=== PATIENT | female | born 1955 | race African-American/Black ===

== ENCOUNTER 2017-02-02 08:46 | Emergency (ER) | payer OTHER ==
[~2017-02-02] VITALS: Ht 167.6 cm; Wt 110.0 kg
[~2017-02-02 08:46] MED LIST: ENAL20TA81 PO; HYDR50TA5 PO; LORT5TAB PO; TOBR.3%O OS; VALT1TAB26 PO
[2017-02-02 08:47] VITALS: BP 193/97; PULSE 68; RESP 18; TEMP 97.9; O2SAT 97
--- NOTE | 2017-02-02 09:16 | PD ---
HPI Chief Complaint: Injury Time Seen by Provider: 09:15 Travel History International Travel<30 days: No Contact w/Intl Traveler<30days: No Traveled to known affect area: No History of Present Illness HPI 61-year-old female with history of carpal tunnel syndrome to the left wrist presents emergency Department with complaint of left wrist pain since yesterday. Denies injury. She said she was doing housework and doing dishes yesterday which may have exacerbated her pain. Denies paresthesias, loss of sensation to the affected extremity. Reports decreased strength to her left hand. Denies fever, vomiting. Has not taken any medications to alleviate her symptoms. Has a left wrist splint in place for support. Has history of hypertension and took her blood pressure medications today. No known allergies. Has no medical complaints. No other modifying factors or associated signs and symptoms. PFSH Past Medical History Blood Disorders: No Cancer: No Cardiovascular Problems: Yes (HTN) Chemotherapy: No Diminished Hearing: No Endocrine: No Genitourinary: No Hypertension: Yes Immune Disorder: No Musculoskeletal: No Neurologic: No Psychiatric: No Reproductive: No Immunizations Current: Yes Migraines: Yes Radiation Therapy: No Sleep Apnea: Yes Tetanus Vaccination: < 5 Years Menopausal: Yes Past Surgical History Section: Yes Gynecologic Surgery: Yes (CSECTION) Tonsillectomy: Yes Other Surgery: Yes (GASTRIC BYPASS; 2007) Social History Alcohol Use: Yes (wine) Tobacco Use: No Substance Use: No Allergies-Medications (Allergen,Severity, Reaction): Coded Allergies: No Known Allergies (Verified , 02/02/17) Reported Meds & Prescriptions Reported Meds & Active Scripts Active Medrol Dosepak (Methylprednisolone) 4 Mg Dspk 4 Mg PO DIRECTED Per Pharmacist direction Naproxen 500 Mg Tab 500 Mg PO BID PRN Review of Systems Except as stated in HPI: all other systems reviewed are Neg Physical Exam Narrative GENERAL: Well-nourished, well-developed female patient, in no acute distress; tearful SKIN: Warm and dry. HEAD: Atraumatic. Normocephalic. EYES: Pupils equal and round. No scleral icterus. No injection or drainage. ENT: Mucosa pink and moist. Airway patent. NECK: Trachea midline. CARDIOVASCULAR: Regular rate. RESPIRATORY: No accessory muscle use. GASTROINTESTINAL: Obese. MUSCULOSKELETAL: Left wrist with tenderness on palpation; without erythema, edema, ecchymosis; full range of motion; decreased equine dentist strength. Left hand with full range of motion at all finger joints. Left upper extremity is supple and non-tense with 2+ radial pulse and sensory intact. No obvious deformities. No clubbing. No cyanosis. NEUROLOGICAL: Awake and alert. Oriented 3. No obvious cranial nerve deficits. Motor grossly within normal limits. Normal speech. PSYCHIATRIC: Appropriate mood and affect; insight and judgment normal. Data Data Last Documented VS Vital Signs Date Time Temp Pulse Resp B/P Pulse Ox O2 Delivery O2 Flow Rate FiO2 02/02/17 08:47 97.9 68 18 193/97 97 Room Air Orders Ketorolac Inj (Toradol Inj) (02/02/17 09:30) [facility] Medical Decision Making Medical Screen Exam Complete: Yes Emergency Medical Condition: Yes Medical Record Reviewed: Yes Differential Diagnosis Wrist pain, wrist injury, carpal tunnel syndrome Narrative Course 61-year-old female with left wrist pain secondary to history of carpal tunnel syndrome. Left wrist is without erythema, edema, ecchymosis. She has a wrist splint for support. Patient's blood pressure is elevated in the ER; she states she did take her blood pressure medications this morning. Toradol administered in the ER. Naproxen and Medrol Dosepak prescribed for home. Instructed patient to follow up with primary care provider. Patient verbalizes understanding and agreement with treatment plan. Patient is medically cleared and stable for discharge. Discussed reasons to return to the emergency department. Patient agrees with treatment plan. The patients vital signs are stable and the patient is stable for outpatient follow-up and treatment. Patient discharged home, stable and in no acute distress. Diagnosis Primary Impression: Left wrist pain Referrals: Primary Care Physician Patient Instructions: Carpal Tunnel Syndrome (ED), General Instructions Additional Instructions: Wrist splint for support; can use at night while sleeping Avoid sleeping on your hands to help ease pain and numbness in your wrist and hand Rotate your wrist and stretch your palms and fingers Take a pain reliever, such as Advil, Motrin, ibuprofen, Aleve as needed and as directed Follow-up with primary care provider Return to the emergency department immediately with worsening of symptoms Med/Other Pt SpecificInfo: Prescription(s) given Scripts Methylprednisolone Dosepak (Medrol Dosepak)4 Mg Dspk4 Mg PO DIRECTED #1 DSPK Ref 0 Per Pharmacist direction Prov:Brandee Morton 02/02/17 Naproxen 500 Mg [id number] Mg PO BID PRN (PAIN SCALE 1 TO 10) #20 TAB Ref 0 Prov:Brandee Morton 02/02/17 Disposition: 01 DISCHARGE HOME Condition: Stable Brandee Morton Feb 02, 2017 09:15
[2017-02-02] MEDS ORDERED: NAPR500T PO (09:18)
[2017-02-02] MEDS ORDERED: MEDR4PAK PO (09:18)
[2017-02-02] MEDS ORDERED: KETOROLAC TROMETHAMINE 60 MG/2 ML (IM) VIAL IM ONE (09:30)
[2017-02-02] MEDS ORDERED: LISI40TA PO (09:33)
[2017-02-02] MEDS ORDERED: AMLO5TAB2 PO (09:33)
[2017-02-02] MEDS ORDERED: HYDR25TA5 PO (09:33)
== END 2017-02-02 09:33 | disposition home or self-care (01) ==
LOC: NEPD 08:46
DX: M25.532 Pain in left wrist (principal); I10 Essential (primary) hypertension
CPT/HCPCS: 96372; 99284; J1885

== ENCOUNTER 2018-02-28 03:00 | Observation (INO) ==
[2018-02-28] MEDS ORDERED: Sodium Chlor 0.9% Inj 500 ML IV.SIG ONE (03:04)
[2018-02-28 03:14] VITALS: RESP 16
[2018-02-28 04:00] LABS: Alanine Aminotransferase 18 U/L (10-53); Albumin 3.8 g/dL (3.4-5.0); Anion Gap 11 meq/L (5-15); Aspartate Aminotransferase 14 U/L (15-37); Blood Urea Nitrogen 15 mg/dL (7-18); Carbon Dioxide 22.7 meq/L (21.0-32.0); Chloride 111 meq/L (98-107); Glomerular Filtration Rate Greater Than 89 mL/min (>89); Glucose,Random 88 mg/dL (74-106); Lipase 155 U/L (73-393); Magnesium 2.2 mg/dL (1.5-2.5); Potassium 3.4 meq/L (3.5-5.1); Sodium 145 meq/L (136-145)
--- NOTE | 2018-02-28 04:01 | XR ---
EXAM DATE: 02/28/2018 3:33 AM EDT AGE/SEX: 62 years / Female INDICATIONS: Chest pain. CLINICAL DATA: This is the patient's initial encounter. Patient reports that signs and symptoms have been present for 1 day and indicates a pain score of 3/10. MEDICAL/SURGICAL HISTORY: None. None. COMPARISON: No prior exams available for comparison. FINDINGS: A single AP view of the chest demonstrates the lungs to be symmetrically aerated without evidence of mass, infiltrate or effusion. The cardiomediastinal contours are unremarkable. Osseous structures a re intact. CONCLUSION: No acute cardiopulmonary disease. Electronically signed by: Iftikhar Jeffries MD 02/28/2018 4:00 AM EDT
[2018-02-28 04:03] LABS: Alkaline Phosphatase 146 U/L (45-117); Creatine Kinase 148 U/L (26-192)
[2018-02-28 04:04] LABS: Baso % (Auto) 0.5 % (0.0-2.0); Eos # (Auto) 0.1 th/mm3 (0.0-0.4); Eos % (Auto) 1.3 % (0.0-4.0); Hematocrit 46.1 % (35.0-46.0); Hemoglobin 15.7 gm/dL (11.6-15.3); Lymph % (Auto) 41.3 % (9.0-44.0); Mean Corpuscular HGB Conc 34.2 % (32.0-36.0); Mean Corpuscular Hemoglobin 31.2 pg (27.0-34.0); Mean Corpuscular Volume 91.3 fL (80.0-100.0); Mean Platelet Volume 8.1 fL (7.0-11.0); Mono # (Auto) 0.5 th/mm3 (0.0-0.9); Mono % (Auto) 7.4 % (0.0-8.0); Neut # (Auto) 3.6 th/mm3 (1.8-7.7); Neut % (Auto) 49.5 % (16.0-70.0); Platelet Count 281 th/mm3 (150-450); Red Blood Count 5.05 mil/mm3 (4.00-5.30); Red Cell Distribution Width 13.5 % (11.6-17.2); White Blood Count 7.3 th/mm3 (4.0-11.0)
[2018-02-28 04:09] LABS: Activated Partial Thrombo Time 28.2 sec (24.3-30.1); INR 1.1 Ratio; Prothrombin Time 11.5 sec (9.8-11.6)
[2018-02-28 04:16] LABS: Creatine Kinase MB 1.8 ng/mL (0.5-3.6)
[2018-02-28 04:29] LABS: Bacteria,Urine Rare /hpf; Bilirubin,Urine Negative (Negative); Clarity,Urine Clear (Clear); Color,Urine Colorless (Yellw/Straw); Glucose,Urine (UA) Negative (Negative); Leukocyte Esterase,Urine Small (Negative); Nitrite,Urine Negative (Negative); Specific Gravity,Urine 1.003 (1.002-1.035); Squamous Epithelial Cell,Urine 1 /hpf (0-5)
--- NOTE | 2018-02-28 04:46 | ED ---
HPI General Chief complaint: Dizziness Stated complaint: Dizziness Time Seen by Provider: 02/28/18 03:04 Source: patient Limitations: no limitations History of Present Illness HPI narrative: The patient is a 62 year old female who presents to the [facility] emergency department with a history of developing a sensation of throat tightening with shortness of breath and increased heart rate earlier this evening. She reports that it has been associated with belching frequently. She denies having any abdominal pain, nausea, vomiting, or diarrhea associated with this. She denies any prior history of coronary artery disease, cardiac arrhythmia, DVT, or PE. The patient does report having a history of hypertension and is on 3 blood pressure medications. She reports that she has been taking these regularly. She denies having any recent problems with acid reflux or heartburn. On review of systems otherwise, the patient denies having any known recent fevers, cough or congestion, urinary symptoms, or neurologic symptoms. Related Data Home Medications Medication Instructions Recorded Confirmed amlodipine 5 mg PO DAILY 02/28/18 02/28/18 hydrochlorothiazide 25 mg PO DAILY 02/28/18 02/28/18 lisinopril 40 mg PO DAILY 02/28/18 02/28/18 Allergies Allergy/AdvReac Type Severity Reaction Status Date / Time No Known Allergies Allergy Uncoded 02/02/17 09:07 Review of Systems ROS Unobtainable All other systems reviewed negative except as stated in HPI Constitutional Denies fever(s) Eyes Denies change in vision ENT Denies headache(s) and Denies nasal congestion Cardiovascular Denies chest pain (However she does have a tightening sensation in her throat), Reports rapid heart rate and Reports dyspnea Respiratory Denies cough and Reports dyspnea Gastrointestinal Denies abdominal pain and Reports other (Frequent belching) Genitourinary Denies difficulty voiding Musculoskeletal Denies myalgias Integumentary/Breasts Denies rash Neurologic Denies headache(s) Psychiatric Denies depression Endocrine Denies polyuria Hematologic/Lymphatic Denies easy bruising [facility] Medical History Medical History Hypertension (Acute) Surgical History Surgical History Gastric bypass status for obesity (Acute) History of (Acute) History of tonsillectomy (Acute) Social History Social History Substance History: No History of Abuse Second Hand Smoke Exposure: No Smoking Status: Former smoker Tobacco Type: Cigarettes How Often Do You Have a Drink Containing Alcohol: 4 or more times a week Recent Travel in [facility] within the Last 8 Weeks: No Recent Out of Country Travel within the Last 8 Weeks: No Immunization History Tetanus Immunization: Unsure Hx Influenza Vaccine This Season: Yes Exam Const General: cooperative, no acute distress and well developed Nutritional Appearance: well nourished Orientation: alert, awake and oriented x3 HENMT Head: normocephalic and atraumatic Nose: no nasal discharge and no epistaxis Mouth: moist mucous membranes Throat: posterior oropharynx normal Eyes Sclera: normal sclerae Pupils: PERRL Neck Neck: no meningeal signs, trachea midline and no JVD Resp Effort & Inspection: no use of accessory muscles Auscultation: clear to auscultation bilaterally Cardio Rate: tachycardic (Heart rate in the 120s, irregularly irregular) Rhythm: abnormal rhythm (Initially irregularly irregular) Heart Sounds: no gallops, no murmurs and no rubs GI Inspection: non-distended Palpation: soft, no hepatosplenomegaly and nontender Auscultation: normal bowel sounds Back/Spine/Pelvis Back: no CVA tenderness Skin General: dry skin (warm) Neuro General: alert, awake and oriented x3 Cranial Nerves: other (No facial asymmetry) Speech: speech normal Motor: no movement abnormalities noted Extrem General: normal to inspection (No calf tenderness on palpation.), no clubbing, no cyanosis and no edema Psych Mood: congruent mood Affect: normal affect Judgment: judgment good Course Initial Documented Vital Signs Pulse Rate 120 H 02/28/18 03:04 Last Documented Vital Signs Temperature 97.5 F L 02/28/18 03:09 Pulse Rate 126 H 02/28/18 03:09 Respiratory Rate 16 02/28/18 06:40 Blood Pressure 145/92 H 02/28/18 03:09 Pulse Oximetry 98 02/28/18 03:09 Medical Decision Making MDM Narrative Medical decision making narrative: During the course of the patient's emergency department visit, the patient's history, examination, and differential diagnosis were reviewed with the patient. The patient was placed on a personnel monitor with oximetry and frequent blood pressure monitoring. The patient had IV access obtained and blood work sent for analysis. A diagnostic workup was started regarding the patient's sensation of throat tightening, palpitations with elevated heart rate and shortness of breath with belching. An EKG was done. The patient's EKG revealed a sinus rhythm heart rate of 74, QRS duration 104 ms, QTC [address] segment elevation, T waves are inverted in lead III, V1. Rhythm strips were reviewed from [facility] which did reveal atrial fibrillation prior to arrival. The patient was initially provided aspirin 324 mg p.o. 1, sublingual nitroglycerin. The patient's laboratory studies are remarkable for a white count of 7.3, platelets 281, normal differential, hemoglobin is 15.7, PT 11.5, PTT 28.2, CMP chemistry is remarkable for a troponin I of less than 0.02, potassium 3.4, chloride 111, AST 14, alk phos 146, magnesium 2.2, lipase 155. Urinalysis shows small occult blood, small leukocyte esterase, rare bacteria, otherwise unremarkable. The chest x-ray shows no acute abnormality. The patient's results were discussed with the patient, including the plan of care. I explained that further testing and/ or monitoring is indicated based on the patient's history, examination, and/ or laboratory findings. Therefore, I recommended admission for additional evaluation. The patient expressed understanding and was agreeable with this plan. The patient was admitted to the hospital in stable condition and sent to a bed under the care of the [facility]. Differential Diagnosis Differential Diagnosis: Paroxysmal atrial fibrillation, versus SVT, versus acute coronary syndrome Medical Records Medical records reviewed: Yes I reviewed the patient's medical records. Lab Data Lab results reviewed: Yes I reviewed the patient's lab results. Result diagrams: 02/28/18 03:10 02/28/18 03:10 Lab Results 02/28/18 02/28/18 02/28/18 Range/Units 03:10 03:10 03:10 WBC 7.3 (4.0-11.0) th/mm3 RBC 5.05 (4.00-5.30) mil/mm3 Hgb 15.7 H (11.6-15.3) gm/dL Hct 46.1 H (35.0-46.0) % MCV 91.3 (80.0-100.0) fL MCH 31.2 (27.0-34.0) pg MCHC 34.2 (32.0-36.0) % RDW 13.5 (11.6-17.2) % Plt Count 281 (150-450) th/mm3 MPV 8.1 (7.0-11.0) fL Neut % (Auto) 49.5 (16.0-70.0) % Lymph % (Auto) 41.3 (9.0-44.0) % Wise % (Auto) 7.4 (0.0-8.0) % Eos % (Auto) 1.3 (0.0-4.0) % Baso % (Auto) 0.5 (0.0-2.0) % Neut # (Auto) 3.6 (1.8-7.7) th/mm3 Lymph # (Auto) 3.0 (1.0-4.8) th/mm3 Wise # (Auto) 0.5 (0.0-0.9) th/mm3 Eos # (Auto) 0.1 (0.0-0.4) th/mm3 Baso # (Auto) 0.0 (0.0-0.2) th/mm3 WBC Differential . Differential Comment Auto diff final PT 11.5 (9.8-11.6) sec INR 1.1 Ratio APTT 28.2 (24.3-30.1) sec Sodium 145 (136-145) meq/L Potassium 3.4 L (3.5-5.1) meq/L Chloride 111 H (98-107) meq/L Carbon Dioxide 22.7 (21.0-32.0) meq/L Anion Gap 11 (5-15) meq/L BUN 15 (7-18) mg/dL Creatinine 0.70 (0.50-1.00) mg/dL Estimated GFR Greater than 89 (>89) mL/min Random Glucose 88 (74-106) mg/dL Calcium 9.0 (8.5-10.1) mg/dL Magnesium 2.2 (1.5-2.5) mg/dL Total Bilirubin 0.3 (0.2-1.0) mg/dL AST 14 L (15-37) U/L ALT 18 (10-53) U/L Alkaline Phosphatase 146 H (45-117) U/L Total Creatine Kinase 148 (26-192) U/L CK-MB (CK-2) 1.8 (0.5-3.6) ng/mL Troponin I Less than 0.02 L (0.02-0.05) ng/mL B-Natriuretic Peptide (0-100) pg/mL Total Protein 8.0 (6.4-8.2) g/dL Albumin 3.8 (3.4-5.0) g/dL Lipase 155 (73-393) U/L Urine Color (Yellw/Straw) Urine Clarity (Clear) Urine pH (5.0-8.5) Ur Specific Rochelle (1.002-1.035) Urine Protein (Neg-Trace) mg/dL Urine Glucose (UA) (Negative) mg/dL Urine Ketones (Negative) mg/dL Urine Occult Blood (Negative) Urine Nitrate (Negative) Urine Bilirubin (Negative) Urine Urobilinogen (Less than 2) mg/dL Ur Leukocyte Esterase (Negative) Urine RBC (0-3) /hpf Urine WBC (0-5) /hpf Ur Squamous Epith Cells (0-5) /hpf Urine Bacteria (None) /hpf Micro UA Comment Urine Culture Comments 02/28/18 02/28/18 Range/Units 03:10 04:00 WBC (4.0-11.0) th/mm3 RBC (4.00-5.30) mil/mm3 Hgb (11.6-15.3) gm/dL Hct (35.0-46.0) % MCV (80.0-100.0) fL MCH (27.0-34.0) pg MCHC (32.0-36.0) % RDW (11.6-17.2) % Plt Count (150-450) th/mm3 MPV (7.0-11.0) fL Neut % (Auto) (16.0-70.0) % Lymph % (Auto) (9.0-44.0) % Wise % (Auto) (0.0-8.0) % Eos % (Auto) (0.0-4.0) % Baso % (Auto) (0.0-2.0) % Neut # (Auto) (1.8-7.7) th/mm3 Lymph # (Auto) (1.0-4.8) th/mm3 Wise # (Auto) (0.0-0.9) th/mm3 Eos # (Auto) (0.0-0.4) th/mm3 Baso # (Auto) (0.0-0.2) th/mm3 WBC Differential Differential Comment PT (9.8-11.6) sec INR Ratio APTT (24.3-30.1) sec Sodium (136-145) meq/L Potassium (3.5-5.1) meq/L Chloride (98-107) meq/L Carbon Dioxide (21.0-32.0) meq/L Anion Gap (5-15) meq/L BUN (7-18) mg/dL Creatinine (0.50-1.00) mg/dL Estimated GFR (>89) mL/min Random Glucose (74-106) mg/dL Calcium (8.5-10.1) mg/dL Magnesium (1.5-2.5) mg/dL Total Bilirubin (0.2-1.0) mg/dL AST (15-37) U/L ALT (10-53) U/L Alkaline Phosphatase (45-117) U/L Total Creatine Kinase (26-192) U/L CK-MB (CK-2) (0.5-3.6) ng/mL Troponin I (0.02-0.05) ng/mL B-Natriuretic Peptide 66 (0-100) pg/mL Total Protein (6.4-8.2) g/dL Albumin (3.4-5.0) g/dL Lipase (73-393) U/L Urine Color Colorless (Yellw/Straw) Urine Clarity Clear (Clear) Urine pH 7.0 (5.0-8.5) Ur Specific Rochelle 1.003 (1.002-1.035) Urine Protein Negative (Neg-Trace) mg/dL Urine Glucose (UA) Negative (Negative) mg/dL Urine Ketones Negative (Negative) mg/dL Urine Occult Blood Small H (Negative) Urine Nitrate Negative (Negative) Urine Bilirubin Negative (Negative) Urine Urobilinogen Less than 2 (Less than 2) mg/dL Ur Leukocyte Esterase Small H (Negative) Urine RBC Less than 1 (0-3) /hpf Urine WBC 3 (0-5) /hpf Ur Squamous Epith Cells 1 (0-5) /hpf Urine Bacteria Rare H (None) /hpf Micro UA Comment Culture not ind Urine Culture Comments Culture not ind Imaging Data Radiologist's impression: Chest X-Ray 02/28/18 03:04 CONCLUSION: No acute cardiopulmonary disease. ECG Data Attestation: I personally reviewed and interpreted this ECG as follows: Interpretation: The patient had an EKG done on arrival that shows a sinus rhythm heart rate is 74, QRS duration 104 ms, QTC 459 ms. The patient is noted to have T-wave inversions in lead III and V1. No acute ST segment elevation is noted. Discharge Plan Discharge Disposition Patient Disposition: 30 Still Patient Discharge Details Diagnosis: Chest pain, rule out acute myocardial infarction Physicians Team ED Provider: Kisha Márquez Primary Care Provider: Adia Acosta Attending Provider: Kleber Guillaume Status ED Status: Admitted Observation Patient
[2018-02-28] MEDS ORDERED: Acetaminophen 500 MG Tablet PO PRN (06:02)
[2018-02-28 07:42] LABS: Creatine Kinase 128 U/L (26-192)
[2018-02-28 08:01] VITALS: BP 131/79; TEMP 97.8; O2SAT 97
[2018-02-28] MEDS ORDERED: Famotidine 20 MG Tablet PO SCH (09:00)
[2018-02-28 09:48] VITALS: PULSE 57
--- NOTE | 2018-02-28 10:00 | P.HPCA ---
History of Present Illness Primary Care Physician: Adia Acosta Chief Complaint: Dizziness History of Present Illness: 62 year old female with history of hypertension presents to ER for further evaluation of dizziness and right sided neck pain. Onset 0200. Awakened to use the bathroom. On way to bathroom became dizzy and experienced right sided neck "burning." Associated symptoms included "racing, heart beat" and described as "throbbing." No chest discomfort, nausea, vomiting, dyspnea, or diaphoresis. Notified her son who lives with her. Quality back. Duration 2 hours. No precipitating or relieving factors. Denies similar pain in the past. No history of coronary artery disease. RN reports atrial fibrillation was identified on EVAC ekg strips. - Diagnosis (1) Atrial fib/flutter, transient (2) History of hypertension Review of Systems All other systems reviewed negative except as stated [facility] - History History Provided By: Patient - Medical History Medical History: Medical History (Last Reviewed 02/28/18 @ 11:28 by JOSELUIS Santillan) Hypertension - Surgical History Surgical History: Surgical History (Last Reviewed 02/28/18 @ 11:28 by JOSELUIS Santillan) Gastric bypass status for obesity History of History of tonsillectomy - Family History Family History: Family History (Last Updated 02/28/18 @ 11:29 by JOSELUIS Santillan) Brother Myocardial infarct - Tobacco History Second Hand Smoke Exposure: No Tobacco Use In Past 30 Days: No Smoking Status: Former smoker (Social smoker in her 20s, quit age 28.) Tobacco Type: Cigarettes - Alcohol History How Often Do You Have a Drink Containing Alcohol: 4 or more times a week (1 glass of wine nightly) - Substance Use History Substance History: No History of Abuse - Travel History Recent Travel in the [place] Within the Last 8 Weeks: No Recent Travel Out of the Country Within the Last 8 Weeks: No - Immunization History Tetanus Immunization: Unsure Hx Influenza Vaccine This Season: Yes Medications and Allergies Active Medications: Active Medications Acetaminophen (Tylenol) 500 mg PO Q4H PRN PRN Reason: HEADACHE Aspirin (Aspirin) 325 mg PO DAILY MAYUR Famotidine (Pepcid) 20 mg PO BID MAYUR Last Admin: 02/28/18 09:14 Dose: 20 mg Nitroglycerin (Nitrostat Sl) 0.4 mg SL Q5M PRN PRN Reason: CHEST PAIN Sodium Chloride (Ns Flush) 2 ml IV.FLUSH UNSCH PRN PRN Reason: FLUSH AFTER USING IV ACCESS Sodium Chloride (Ns Flush) 2 ml IV.FLUSH BID MAYUR Last Admin: 02/28/18 09:13 Dose: 2 ml Sodium Chloride (Ns Flush) 2 ml IV.FLUSH PRN PRN PRN Reason: FLUSH AFTER USING IV ACCESS Allergies Allergy/AdvReac Type Severity Reaction Status Date / Time No Known Allergies Allergy Uncoded 02/02/17 09:07 Home Medications Medication Instructions Recorded Confirmed Type amlodipine 5 mg PO DAILY 02/28/18 02/28/18 History hydrochlorothiazide 25 mg PO DAILY 02/28/18 02/28/18 History lisinopril 40 mg PO DAILY 02/28/18 02/28/18 History Exam Vital signs: Vital Signs 02/28/18 03:04 02/28/18 03:09 02/28/18 04:00 Temperature 97.5 F L Pulse Rate 120 H 126 H 74 Respiratory Rate 16 16 Blood Pressure 145/92 H 140/76 Pulse Oximetry 98 98 02/28/18 05:00 02/28/18 06:02 02/28/18 06:39 Temperature Pulse Rate 67 68 Respiratory Rate 16 16 16 Blood Pressure 145/82 H 134/79 Pulse Oximetry 99 99 02/28/18 06:40 02/28/18 07:58 02/28/18 09:34 Temperature 97.8 F Pulse Rate 63 57 L Respiratory Rate 16 16 Blood Pressure 131/79 Pulse Oximetry 97 Intake & Output 02/27/18 02/28/18 02/28/18 18:59 06:59 18:59 Weight 113.398 kg Narrative: Very pleasant -Dominican morbidly obese female - Constitutional no acute distress - Routine HEENT Exam Head: Present: normocephalic, atraumatic - Routine Neck Exam Present: supple, full ROM. Absent: JVD, carotid bruit - Routine Chest/Breast/Axilla Exam Chest wall: Absent: tenderness - Routine Respiratory Exam Present: CTA bilaterally. Absent: rhonchi, stridor, wheezes, crackles - Routine Cardiovascular Exam Present: RRR. Absent: murmur, gallop, rubs - Routine Abdominal Exam Present: soft, normoactive bowel sounds. Absent: distended, firm - Routine Extremities Exam Present: full ROM, pulses intact. Absent: edema, tenderness - Routine Skin Exam Present: intact, dry, warm - Routine Neurological Exam Present: alert, oriented X3, CN II-XII intact, moving all extremities, normal tone, normal speech - Routine Psychiatric Exam Present: normal affect, normal thought process, cooperative, good insight, good judgment Results 02/28/18 03:10 02/28/18 03:10 Cardiac Enzymes 02/28/18 02/28/18 02/28/18 Range/Units 03:10 03:10 06:50 AST 14 L (15-37) U/L CK-MB (CK-2) 1.8 (0.5-3.6) ng/mL Troponin I Less than 0.02 L Less than 0.02 L (0.02-0.05) ng/mL B-Natriuretic Peptide 66 (0-100) pg/mL Coagulation 02/28/18 02/28/18 Range/Units 03:10 03:10 PT 11.5 (9.8-11.6) sec APTT 28.2 (24.3-30.1) sec B-Natriuretic Peptide 66 (0-100) pg/mL CBC 02/28/18 Range/Units 03:10 WBC 7.3 (4.0-11.0) th/mm3 RBC 5.05 (4.00-5.30) mil/mm3 Hgb 15.7 H (11.6-15.3) gm/dL Hct 46.1 H (35.0-46.0) % Plt Count 281 (150-450) th/mm3 Neut # (Auto) 3.6 (1.8-7.7) th/mm3 Lymph # (Auto) 3.0 (1.0-4.8) th/mm3 [place] # (Auto) 0.5 (0.0-0.9) th/mm3 Eos # (Auto) 0.1 (0.0-0.4) th/mm3 Baso # (Auto) 0.0 (0.0-0.2) th/mm3 Comprehensive Metabolic Panel 02/28/18 Range/Units 03:10 Sodium 145 (136-145) meq/L Potassium 3.4 L (3.5-5.1) meq/L Chloride 111 H (98-107) meq/L Carbon Dioxide 22.7 (21.0-32.0) meq/L BUN 15 (7-18) mg/dL Creatinine 0.70 (0.50-1.00) mg/dL Calcium 9.0 (8.5-10.1) mg/dL AST 14 L (15-37) U/L ALT 18 (10-53) U/L Alkaline Phosphatase 146 H (45-117) U/L Total Protein 8.0 (6.4-8.2) g/dL Albumin 3.8 (3.4-5.0) g/dL Intake and Output 02/27/18 02/28/18 02/28/18 22:59 06:59 14:59 Other: Weight 113.398 kg EKG interpretations - EKG EKG results cardiology: sinus rhythm, normal axis, normal QRS, normal ST/T ( EVAC EKG strips reviewed show atrial fibrillation) Caprini VTE Risk Assessment Caprini VTE Risk Assessment: Moderate/High Risk (score >= 2) Caprini Risk Assessment Model: Point Value = 1 Point Value = 2 Point Value = 3 Point Value = 5 Age 41-60 Minor surgery BMI > 25 kg/m2 Swollen legs Varicose veins or History of unexplained or recurrent spontaneous Oral contraceptives or hormone replacement Sepsis (< 1 month) Serious lung disease, including pneumonia (< 1 month) Abnormal pulmonary function Acute myocardial infarction Congestive heart failure (< 1 month) History of inflammatory bowel disease Medical patient at bed rest Age 61-74 Arthroscopic surgery Major open surgery (> 45 min) Laparoscopic surgery (> 45 min) Malignancy Confined to bed (> 72 hours) Immobilizing plaster cast Central venous access Age >= 75 History of VTE Family history of VTE Factor V Leiden Prothrombin 53857A Lupus anticoagulant Anticardiolipin antibodies Elevated serum homocysteine Heparin-induced thrombocytopenia Other congenital or acquired thrombophilia Stroke (< 1 month) Elective arthroplasty Hip, pelvis, or leg fracture Acute spinal cord injury (< 1 month) Prophylaxis Regimen: Total Risk Factor Score Risk Level Prophylaxis Regimen 0-1 Low Early ambulation 2 Moderate Order ONE of the following: *Sequential Compression Device (SCD) *Heparin 5000 units SQ BID 3-4 Higher Order ONE of the following medications: *Heparin 5000 units SQ TID *Enoxaparin/Lovenox 40 mg SQ daily (WT < 150 kg, CrCl > 30 mL/min) *Enoxaparin/Lovenox 30 mg SQ daily (WT < 150 kg, CrCl > 10-29 mL/min) *Enoxaparin/Lovenox 30 mg SQ BID (WT < 150 kg, CrCl > 30 mL/min) AND/OR *Sequential Compression Device (SCD) 5 or more Highest Order ONE of the following medications: *Heparin 5000 units SQ TID (Preferred with Epidurals) *Enoxaparin/Lovenox 40 mg SQ daily (WT < 150 kg, CrCl > 30 mL/min) *Enoxaparin/Lovenox 30 mg SQ daily (WT < 150 kg, CrCl > 10-29 mL/min) *Enoxaparin/Lovenox 30 mg SQ BID (WT < 150 kg, CrCl > 30 mL/min) AND *Sequential Compression Device (SCD) Assessment and Plan - Assessment (1) Atrial fib/flutter, transient Status: Acute Plan: Admitted to chest pain center. ACS ruled out with 3 sets of EKGs and cardiac enzymes. No further cardiac testing. Discomfort likely due to new onset transient atrial fibrillation. Dr. Rowley discussed in length importance of anticoagulation therapy. Patient chooses to do full strength aspirin at this time and will follow up with her primary care provider also instructed to establish with [facility] community association manager. Verbalizes understanding and agreeable plan of care. Discharge home this morning. (2) History of hypertension Code(s): Z86.79 - Personal history of other diseases of the circulatory system Status: Chronic Plan: Continue lisinopril, hydrochlorothiazide, and amlodipine. Discussed following a low-sodium diet of no more than 2000 mg daily. Weight loss and increasing daily activity encouraged.
[2018-02-28] MEDS ORDERED: amLODIPine 5 MG Tablet PO SCH (10:15)
[2018-02-28 10:51] LABS: Creatine Kinase 138 U/L (26-192)
--- NOTE | 2018-02-28 11:06 | P.PNCA ---
Subjective Interval history: Patient was presented by the nurse practitioner her documentation was then reviewed her laboratory radiographic and cardiographic data was also reviewed. The EKGs from transport were also reviewed. I am in agreement with the documentation no additional information to add other than verification that the EVAC rhythm strips do documented atrial fibrillation. Patient awoke with dizziness and a rapid heartbeat that subsequently resolved consistent with resolution of her atrial fibrillation. She does have risk for atrial fibrillation in terms of her hypertension obesity and sedentary lifestyle. She has no symptoms suggesting ischemia and has already ruled out for ACS or ischemia using standard chest pain center protocol. Physical Exam Vital signs: Vital Signs 02/28/18 03:04 02/28/18 03:09 02/28/18 04:00 Temperature 97.5 F L Pulse Rate 120 H 126 H 74 Respiratory Rate 16 16 Blood Pressure 145/92 H 140/76 Pulse Oximetry 98 98 02/28/18 05:00 02/28/18 06:02 02/28/18 06:39 Temperature Pulse Rate 67 68 Respiratory Rate 16 16 16 Blood Pressure 145/82 H 134/79 Pulse Oximetry 99 99 02/28/18 06:40 02/28/18 07:58 02/28/18 09:34 Temperature 97.8 F Pulse Rate 63 57 L Respiratory Rate 16 16 Blood Pressure 131/79 Pulse Oximetry 97 Intake & Output 02/27/18 02/28/18 02/28/18 18:59 06:59 18:59 Weight 113.398 kg Narrative: Obese pleasant lady sitting on side of bed Neck reveals no JVD Chest is clear to auscultation with no rales wheezes or rhonchi Cardiovascular regular sinus rhythm with no gallop rub or murmur Assessment and Plan - Assessment (1) Atrial fib/flutter, transient Status: Acute - Plan Patient had an episode of rapid heart rate dizziness with documented atrial fibrillation. Symptoms resolved with resolution of the atrial fibrillation. She does have increased risk for atrial fibrillation on the basis of her hypertension and obesity. Further evaluation for ischemia is not felt necessary at this time since she has ruled out with 3 sets of enzymes and EKGs and has had no further symptoms. She has an established primary care physician with [facility] and therefore access to cardiology. Her current situation was discussed and explained in some detail along with the need for continuing weight loss exercise and lifestyle alteration and tight control of her blood pressure. Additionally she should be evaluated for ischemia on an outpatient basis and have an echocardiogram to evaluate atrial size and function. Recommendations were made for addition of a blood thinner with full explanation of why this is important. However the patient is extremely reticent to consider this option. We finally agreed that she would take an aspirin a day until she could be evaluated on an outpatient basis by [facility] real estate associate at which time long-term therapeutic input implications could be considered. She will therefore be discharged to follow-up with her primary care physician this week and a request made for evaluation by [facility] cardiology as soon as possible. Discussed Condition With: This was discussed in some detail with the patient Discharge Planning: Patient will be discharged to home on an aspirin a day plus her usual medication with a request for follow-up with her primary care physician within a week and plans for consultation with [facility] real estate associate as soon as possible - Attending Attestation I attest to the appropriateness of the evaluation and treatment and documentation as entered above
[2018-02-28] MEDS ORDERED: hydroCHLOROthiazide 25 MG Tablet PO SCH (11:15)
[2018-02-28] MEDS ORDERED: Lisinopril 20 MG Tablet PO SCH (11:15)
[2018-03-01] MEDS ORDERED: Aspirin 325 MG Tablet PO SCH (09:00)
--- NOTE | 2018-03-01 16:56 | ECG ---
Date Performed: 02/28/2018 Time Performed: 06:52:38 PTAGE: 62 years EKG: Sinus rhythm POSSIBLE LEFT ATRIAL ENLARGEMENT BORDERLINE ECG Since PREVIOUS TRACING , no significant change noted PREVIOUS TRACIN12/21/2009 14.43 DOCTOR: Elisa Mcdonough Interpretating Date/Time 03/01/2018 16:54:48
--- NOTE | 2018-03-01 16:56 | ECG ---
Date Performed: 02/28/2018 Time Performed: 09:34:19 PTAGE: 62 years EKG: SINUS BRADYCARDIA PROLONGED QT INTERVAL ABNORMAL ECG Since PREVIOUS TRACING , no significant change noted PREVIOUS TRACIN02/28/2018 06.52 DOCTOR: Elisa Mcdonough Interpretating Date/Time 03/01/2018 16:54:37
--- NOTE | 2018-03-01 16:57 | ECG ---
Date Performed: 02/28/2018 Time Performed: 03:59:45 PTAGE: 62 years EKG: Sinus rhythm POSSIBLE LEFT ATRIAL ENLARGEMENT BORDERLINE LEFT AXIS DEVIATION BORDERLINE ECG Since PREVIOUS TRACING , no significant change noted DOCTOR: Elisa Mcdonough Interpretating Date/Time 03/01/2018 16:55:17
== END 2018-02-28 13:51 | disposition home or self-care (01) ==
LOC: NEPFCDU 03:00 → NEDA 03:00 → NEPE 03:00 → NEPFCDU 07:10
DX: R42 Dizziness and giddiness; Z82.49 Family history of ischemic heart disease and other diseases of the circulatory system; I10 Essential (primary) hypertension; R94.31 Abnormal electrocardiogram [ECG] [EKG]; F17.210 Nicotine dependence, cigarettes, uncomplicated; I48.92 Unspecified atrial flutter; I48.91 Unspecified atrial fibrillation; E66.9 Obesity, unspecified; Z98.84 Bariatric surgery status